=== PATIENT | male | born 1995 | race Two or more races ===

== ENCOUNTER 2021-09-19 14:22 | Emergency (ER) | payer OTHER ==
[~2021-09-19] VITALS: Ht 177.8 cm; Wt 81.6 kg
== END 2021-09-19 17:19 | disposition home or self-care (01) ==
LOC: ER 14:22
DX: S61.215A Laceration without foreign body of left ring finger without damage to nail, initial encounter (principal); W26.0XXA Contact with knife, initial encounter; Y93.89 Activity, other specified; Y92.89 Other specified places as the place of occurrence of the external cause; Y99.8 Other external cause status

== ENCOUNTER 2021-12-31 14:59 | Emergency (ER) | payer OTHER ==
[~2021-12-31] VITALS: Ht 180.3 cm; Wt 95.7 kg
[2021-12-31] MEDS ORDERED: ZOFRAN8 MG PO (18:06)
[2021-12-31] MEDS ORDERED: PEPCID AC20 MG PO (18:06)
== END 2021-12-31 18:19 | disposition home or self-care (01) ==
LOC: ER 14:59
DX: K52.9 Noninfective gastroenteritis and colitis, unspecified (principal); R10.84 Generalized abdominal pain; Z20.822 Contact with and (suspected) exposure to COVID-19